=== PATIENT | male | born 1965 | race Caucasian/White ===

== ENCOUNTER 2018-08-17 07:44 | Day surgery (SDC) | payer OTHER ==
[2018-08-15 09:13] VITALS: BMI 33.2
[~2018-08-17 07:44] MED LIST: LACTATED RINGERS 1,000 ML IV SCH; LIDOCAINE 1% 20 ML VIAL (10MG/ML) FOR IV START INTRADERMA PRN
[2018-08-17 08:20] VITALS: RESP 16; TEMP 97.7
[2018-08-17] MEDS ORDERED: GLYCOPYRROLATE 0.2 MG/ML 2 ML VIAL ONE (09:10)
[2018-08-17] MEDS ORDERED: PROPOFOL 10 MG/ML 20 ML VIAL IV ONE (09:10)
[2018-08-17] MEDS ORDERED: LIDOCAINE 1% INJ 10MG/ML (20 ML MDV) ONE (09:10)
--- NOTE | 2018-08-17 09:38 | P.PCN ---
Date of Procedure: 08/17/18 Procedure(s) Performed: Procedure: Colonoscopy and polypectomy. Preoperative diagnosis: Screening for neoplasia. Postoperative diagnosis: Small distal sigmoid polyp snared but no large polyps or cancer. Preparation: HalfLytely prep. Sedation: Was provided by anesthesia. Brief clinical history: The patient is a 53-year-old male who is scheduled for this evaluation for screening for neoplasia. His last exam was in 2012. He has no abdominal complaints, bleeding or anemia. Procedure: With the patient on his left lateral decubitus position and after informed consent and adequate sedation, the perianal area was inspected and it did not show any fissures or fistulas. There were no masses felt on digital rectal examination. The Olympus CFH 190L colonoscope was then inserted in the rectum in the usual fashion and advanced to the cecum. The mucosa appeared healthy. There was no obvious diverticular disease noted. There was a small polyp in the distal sigmoid that was snared and retrieved by suction but there were no large polyps or cancer. I retroflexed the endoscope in the rectum before the endoscope was withdrawn The patient tolerated the procedure well. Plan: The patient was reassured. He will follow-up with you as planned and I recommended repeat exam in 5 years.
[2018-08-17 10:07] VITALS: BP 135/87; PULSE 42
== END 2018-08-17 10:45 | disposition home or self-care (01) ==
LOC: ORWHC2ENDO 07:44
DX: Z12.11 Encounter for screening for malignant neoplasm of colon (principal); D12.5 Benign neoplasm of sigmoid colon; K21.9 Gastro-esophageal reflux disease without esophagitis; Z79.899 Other long term (current) drug therapy; Z79.1 Long term (current) use of non-steroidal anti-inflammatories (NSAID)
CPT/HCPCS: 88305; 45385; J2001; J2704

== ENCOUNTER 2020-08-31 15:44 | Emergency (ER) | payer OTHER ==
--- NOTE | 2020-08-31 16:14 | ED ---
SOB HPI - General Chief Complaint: Shortness of Breath Stated Complaint: OLIVIA Time Seen by Provider: 08/31/20 15:53 Source: patient Mode of arrival: ambulatory Limitations: no limitations - History of Present Illness Initial Comments: Patient is a 55-year-old male with history of GERD, presenting to the emergency Department with complaints of shortness of breath 3 weeks. Patient has been having symptoms of cough, chest congestion and mild shortness of breath over the past 2 weeks, he went to urgent care 4 days ago, he was diagnosed with pneumonia and started on Augmentin as well as an inhaler and Mucinex. Patient states he has been taking his medications but feels like he continues to be short of breath. He denies any chest pains, no nausea or vomiting, no abdominal pain. He denies history of asthma or COPD, he is a former smoker. He denies ever having any fever, no chills, no body aches. He has no concerns for Covid and does not want to be tested. Patient states he has been taking his medications as prescribed. He describes his cough is dry, no production. He has no further complaints at this time. Upon arrival to the ER, he is slightly hypertensive at 183/99, rest of vitals are normal, 98% on room air. - Related Data Home Medications Medication Instructions Recorded Confirmed Cyanocobalamin (Vitamin B-12) 1,000 mcg PO DAILY 08/15/18 08/17/18 [Vitamin B-12] Joint Supplement 1 tab PO DAILY 08/15/18 08/17/18 Naproxen Sodium [Aleve] 220 mg PO DAILY PRN 08/15/18 08/17/18 Omeprazole [PriLOSEC] 20 mg PO AC-[id number] 08/15/18 08/17/18 Previous Rx's Medication Instructions Recorded methylPREDNISolone [Medrol Dose 4 mg PO DIRECTED #1 pack 08/31/20 Pack] Allergies Allergy/AdvReac Type Severity Reaction Status Date / Time No Known Allergies Allergy Verified 08/31/20 15:51 Review of Systems ROS Statement: Those systems with pertinent positive or pertinent negative responses have been documented in the HPI. ROS Other: All systems not noted in ROS Statement are negative. Past Medical History Past Medical History: GERD/Reflux, Liver Disease Additional Past Medical History / Comment(s): hepatitis-unkn type age 16 History of Any Multi-Drug Resistant Organisms: None Reported Past Surgical History: No Surgical Hx Reported Additional Past Surgical History / Comment(s): colonoscopy Past Anesthesia/Blood Transfusion Reactions: No Reported Reaction Past Psychological History: No Psychological Hx Reported Smoking Status: Former smoker Past Alcohol Use History: Occasional Past Drug Use History: None Reported - Past Family History Father Family Medical History: Cancer General Exam - General Exam Comments Initial Comments: GENERAL: Patient is well-developed and well-nourished. Patient is nontoxic and in no acute distress. HEAD: Atraumatic, normocephalic. EYES: Pupils equal round and reactive to light, extraocular movements intact, sclera anicteric, conjunctiva are normal. Eyelids were unremarkable. ENT: TMs normal, nares patent, oropharynx clear without exudates. Moist mucous membranes. NECK: Normal range of motion, supple without lymphadenopathy or JVD. LUNGS: Unlabored respirations. Breath sounds clear to auscultation bilaterally and equal. No wheezes rales or rhonchi. HEART: Regular rate and rhythm without murmurs, rubs or gallops. ABDOMEN: Soft, nontender, normoactive bowel sounds. No guarding, no rebound. No masses appreciated. : Deferred MUSCULOSKELETAL: Normal extremities with adequate strength and normal range of motion, no pitting or edema. No clubbing or cyanosis. NEUROLOGICAL: Patient is alert and oriented x 3. Motor and sensory are also intact. Cranial nerves II through XII grossly intact. Symmetrical smile. Normal speech, normal gait. PSYCH: Normal mood, normal affect. SKIN: Warm, Dry, normal turgor, no rashes or lesions noted. Limitations: no limitations Course Vital Signs 08/31/20 08/31/20 15:46 17:00 Temperature 98.1 F Pulse Rate 50 L 54 L Respiratory 18 18 Rate Blood Pressure 183/99 141/93 O2 Sat by Pulse 98 97 Oximetry Medical Decision Making - Medical Decision Making Patient is a 55-year-old male presenting with shortness of breath 3 weeks. Patient went to urgent care 4 days ago, diagnosed with pneumonia, is currently on Augmentin, Mucinex and using an inhaler. No fevers, his vital signs are stable today. EKG shows no acute process. Chest x-ray shows mild subsegmental atelectasis left lung base. Lab work is unremarkable, normal troponin, normal d-dimer. I discussed with patient that I mean and on steroids to his treatment regimen. He should continue and finish Augmentin, he can continue with his inhaler as needed. I will give him a dose of steroids and his IV before discharge. He will continue with oral steroids tomorrow. He can follow-up with his doctor. He is in agreement with this plan of care. Patient is stable for discharge. Patient is in agreement with this plan of care. Return parameters were discussed with the patient and they verbalized understanding. Case discussed with Dr. Kelley. - Lab Data Result diagrams: 08/31/20 17:21 08/31/20 17: Lab Results 08/31/20 08/31/20 08/31/20 Range/Units 17: 17: 17:21 WBC 9.9 (3.8-10.6) k/uL RBC 4.90 (4.30-5.90) m/uL Hgb 14.9 (13.0-17.5) gm/dL Hct 43.0 (39.0-53.0) % MCV 87.7 (80.0-100.0) fL MCH 30.5 (25.0-35.0) pg MCHC 34.8 (31.0-37.0) g/dL RDW 12.2 (11.5-15.5) % Plt Count 243 (150-450) k/uL MPV 7.3 Neutrophils % 58 % Lymphocytes % 28 % Monocytes % 7 % Eosinophils % 4 % Basophils % 1 % Neutrophils # 5.8 (1.3-7.7) k/uL Lymphocytes # 2.8 (1.0-4.8) k/uL Monocytes # 0.7 (0-1.0) k/uL Eosinophils # 0.4 (0-0.7) k/uL Basophils # 0.1 (0-0.2) k/uL PT 10.3 (9.0-12.0) sec INR 1.0 (<1.2) APTT 22.0 (22.0-30.0) sec D-Dimer 0.31 (<0.60) mg/L FEU Sodium 139 (137-145) mmol/L Potassium 4.4 (3.5-5.1) mmol/L Chloride 100 (98-107) mmol/L Carbon Dioxide 31 H (22-30) mmol/L Anion Gap 8 mmol/L BUN 19 (9-20) mg/dL Creatinine 0.88 (0.66-1.25) mg/dL Est GFR (CKD-EPI)AfAm >90 (>60 ml/min/1.73 sqM) Est GFR (CKD-EPI)NonAf >90 (>60 ml/min/1.73 sqM) Glucose 89 (74-99) mg/dL Plasma Lactic Acid Max (0.7-2.0) mmol/L Calcium 10.2 (8.4-10.2) mg/dL Total Bilirubin 1.0 (0.2-1.3) mg/dL AST 44 (17-59) U/L ALT 48 (4-49) U/L Alkaline Phosphatase 66 (38-126) U/L Troponin I (0.000-0.034) ng/mL Total Protein 7.7 (6.3-8.2) g/dL Albumin 4.6 (3.5-5.0) g/dL 08/31/20 08/31/20 Range/Units 17:21 17:21 WBC (3.8-10.6) k/uL RBC (4.30-5.90) m/uL Hgb (13.0-17.5) gm/dL Hct (39.0-53.0) % MCV (80.0-100.0) fL MCH (25.0-35.0) pg MCHC (31.0-37.0) g/dL RDW (11.5-15.5) % Plt Count (150-450) k/uL MPV Neutrophils % % Lymphocytes % % Monocytes % % Eosinophils % % Basophils % % Neutrophils # (1.3-7.7) k/uL Lymphocytes # (1.0-4.8) k/uL Monocytes # (0-1.0) k/uL Eosinophils # (0-0.7) k/uL Basophils # (0-0.2) k/uL PT (9.0-12.0) sec INR (<1.2) APTT (22.0-30.0) sec D-Dimer (<0.60) mg/L FEU Sodium (137-145) mmol/L Potassium (3.5-5.1) mmol/L Chloride (98-107) mmol/L Carbon Dioxide (22-30) mmol/L Anion Gap mmol/L BUN (9-20) mg/dL Creatinine (0.66-1.25) mg/dL Est GFR (CKD-EPI)AfAm (>60 ml/min/1.73 sqM) Est GFR (CKD-EPI)NonAf (>60 ml/min/1.73 sqM) Glucose (74-99) mg/dL Plasma Lactic Acid Max 1.1 (0.7-2.0) mmol/L Calcium (8.4-10.2) mg/dL Total Bilirubin (0.2-1.3) mg/dL AST (17-59) U/L ALT (4-49) U/L Alkaline Phosphatase (38-126) U/L Troponin I <0.012 (0.000-0.034) ng/mL Total Protein (6.3-8.2) g/dL Albumin (3.5-5.0) g/dL - EKG Data EKG Comments: Sinus bradycardia, otherwise a normal ECG. Ventricular rate 50, OK interval 174, QTC 418. Disposition Clinical Impression: Pneumonia Disposition: HOME SELF-CARE Condition: Stable Instructions (If sedation given, give patient instructions): Bacterial Pneumonia (ED) Additional Instructions: Please return to the Emergency Department if symptoms worsen or any other concerns. Continue with already prescribed Augmentin and sure inhaler for shortness of breath. Please add on oral steroids as discussed, start these tomorrow. Follow-up with your regular doctor. Prescriptions: methylPREDNISolone [Medrol Dose Pack] 4 mg PO DIRECTED #1 pack Is patient prescribed a controlled substance at d/c from ED?: No Referrals: [facility],Clinic [REFERRING] - 1-2 days
--- NOTE | 2020-08-31 16:36 | XR ---
EXAMINATION TYPE: XR chest 2V DATE OF EXAM: 08/31/2020 COMPARISON: NONE HISTORY: Short of breath TECHNIQUE: 2 views FINDINGS: There is some linear density left lung base. Heart and mediastinum are normal. There are no hilar masses. There is no pleural effusion. Bony thorax is intact. There are chest leads. IMPRESSION: Mild subsegmental atelectasis left lung base. Normal heart.
[2020-08-31 17:29] LABS: Basophils # (A) 0.1 k/uL (0-0.2); Basophils % (A) 1 %; Eosinophils # (A) 0.4 k/uL (0-0.7); Eosinophils % (A) 4 %; HGB 14.9 gm/dL (13.0-17.5); Lymphocytes # (A) 2.8 k/uL (1.0-4.8); Lymphocytes % (A) 28 %; MCH 30.5 pg (25.0-35.0); MCHC 34.8 g/dL (31.0-37.0); MCV 87.7 fL (80.0-100.0); Mean Platelet Volume 7.3; Monocytes # (A) 0.7 k/uL (0-1.0); Monocytes % (A) 7 %; Neutrophils # (A) 5.8 k/uL (1.3-7.7); Neutrophils % (A) 58 %; Platelet Count 243 k/uL (150-450); RDW 12.2 % (11.5-15.5); WBC 9.9 k/uL (3.8-10.6)
[2020-08-31 17:37] LABS: ALT 48 U/L (4-49); AST 44 U/L (17-59); African American GFR (CKD) >90 (>60 ml/min/1.73 sqM); Albumin 4.6 g/dL (3.5-5.0); Alkaline Phosphatase 66 U/L (38-126); Anion Gap 8 mmol/L; Blood Urea Nitrogen 19 mg/dL (9-20); Calcium 10.2 mg/dL (8.4-10.2); Carbon Dioxide 31 mmol/L (22-30); Chloride 100 mmol/L (98-107); Glucose 89 mg/dL (74-99); Non-African American GFR(CKD) >90 (>60 ml/min/1.73 sqM); Potassium 4.4 mmol/L (3.5-5.1); Sodium 139 mmol/L (137-145); Total Protein 7.7 g/dL (6.3-8.2)
[2020-08-31 17:50] LABS: D-Dimer 0.31 mg/L FEU (<0.60); Prothrombin Time 10.3 sec (9.0-12.0)
[2020-08-31] MEDS ORDERED: methylPREDNISolone SOD SUCCI 125 MG/2 ML VIAL IV STA (18:00)
[2020-08-31 18:10] VITALS: BP 147/81; PULSE 55; RESP 20
[2020-08-31 18:19] VITALS: TEMP 98.2
== END 2020-08-31 18:10 | disposition home or self-care (01) ==
LOC: EC 15:44
DX: J18.9 Pneumonia, unspecified organism (principal); K21.9 Gastro-esophageal reflux disease without esophagitis; Z79.899 Other long term (current) drug therapy; Z87.891 Personal history of nicotine dependence
CPT/HCPCS: 36415; 93005; 85379; 83880; 80053; 83605; 84484; 85025; 85610; 85730; 71046; 99285; 96374; J2930

== ENCOUNTER → 2020-11-12 | Outpatient (CLI) | payer OTHER ==
--- NOTE | 2020-11-12 22:04 | CONS ---
CONSULTATION DATE OF SERVICE: 11/12/2020. 55-year-old gentleman who has been [facility]evaluated in the [facility] for obstructive sleep apnea-hypopnea syndrome. HISTORY OF PRESENT ILLNESS/SLEEP WAKE EVALUATION: Patient has been diagnosed with obstructive sleep apnea in 2014, apnea-hypopnea index at that time was 14.7, and he was treated with CPAP with a pressure 13 cm of water. The patient continues to use his CPAP equipment every night. He does not snore with a CPAP but wakes up from sleep 2 times without nocturia. SLEEP SCHEDULE: His sleep schedule on working days from 7:30 p.m. to 2 a.m. and on weekends from 9:30 p.m. to 6:30 a.m. FALLING ASLEEP: No problems with falling asleep. No TV in bedroom. DURING SLEEP: Patient usually sleeps on the side position. No history of hypnagogic hallucinations, sleep paralysis or cataplexy. [place] Sleepiness Scale today is normal at 3. I checked his CPAP unit. Usage is 25/30 nights for more than 4 hours. Average usage is 6.4 hours per night. Range of the pressure 7-13 Auto PAP. Machine does not have information about apnea-hypopnea index. The patient using DreamWear under the nose mask. PAST MEDICAL HISTORY: Basically negative. PAST SURGICAL HISTORY: Negative. MEDICATIONS: Presently none. SOCIAL HISTORY: Smokes cigarettes in the past. Quit smoking 22 years ago. Alcohol consumption occasional. FAMILY HISTORY: Snoring. REVIEW OF SYSTEMS: Some awakenings from sleep while on treatment with CPAP. No fevers. No double vision. No recent chest pain. No shortness of breath. No abdominal pain. No bleeding episodes. No blood in the urine. No seizure episodes. PHYSICAL EXAMINATION: GENERAL: Patient in no distress. BP 157/87, HR 47, RR 14, height 5 feet 10 inches, weight 226, BMI 32.4. Neck 17 and two quarter inches in circumference. Temperature 98.5, oxygen saturation at room air 98%. HEENT: PERRLA, EOMI. Oropharynx low position of soft palate. NECK: Supple, no JVD. Thyroid is not palpable. LUNGS: Clear to percussion and to auscultation. Good air exchange. No wheezing or rhonchi. HEART: S1, S2 regular. No murmurs, gallops, or rubs. ABDOMEN: Slightly obese. Soft and nontender. Bowel sounds are present. No organomegaly appreciated. EXTREMITIES: No clubbing or cyanosis. 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 Cranial nerves 2 to 7 intact. There is no fasciculation or atrophy. noted. No focal deficits observed. IMPRESSION: 1. Obstructive sleep apnea-hypopnea syndrome for about 8 years. The patient continues to use his machine, but has awakenings from sleep. The patient does not have information about apnea-hypopnea index. 2. Obesity, BMI 32.4. 3. 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 4. Hypertension in the office today, BP 157/87. PLAN: 1. The patient CPAP unit is old pleasant. Does not have information about apnea- hypopnea index. 2. Prescription for new auto PAP, range of the pressure of 7-13. 3. The patient should continue to use CPAP equipment every night for the whole night. 4. Prescription for Dream Wear under the nose mask, heated humidifier. 5. Watching and losing weight. 6. Sleep hygiene with regular time in bed for 7-1/2 to 8 hours. 7. No driving if feeling sleepiness. 8. I will see patient for follow-up visit after he will get a new machine to check his compliance with treatment and check apnea-hypopnea index reading from the machine if necessary to make any adjustments. Thank you very much for referring this patient for consultation. Sincerely, Memo Márquez MD, PhD, FAASM Diplomat of [place] [employer] [place] [employer] G[employer] Writer of [facility] [place] MMODL / RAMONN: [id number] /
== END ==
CPT/HCPCS: 99211

== ENCOUNTER → 2021-08-17 | Outpatient (CLI) | payer BC ==
--- NOTE | 2021-08-18 10:34 | US ---
EXAMINATION TYPE: US abdomen complete DATE OF EXAM: 08/17/2021 COMPARISON: NONE CLINICAL HISTORY: 56-year-old male R10.30 LOWER ABD PAIN,R74.01 ELEVATION LIVER TRANSAMINASE. Elevate d LFT's. Patient states generalized ABD pain TECHNIQUE: Multiple sonographic images of the abdomen are obtained. FINDINGS: EXAM MEASUREMENTS: Liver Length: 16.6 cm Gallbladder Wall: 0.3 cm CBD: 0.4 cm Spleen: 11.7 cm Right Kidney: 10.5 x 5.2 x 5.5 cm Left Kidney: 11.7 x 6.0 x 5.4 cm Pancreas: Most of the pancreas is visualized and shows no gross abnormal mobility. Liver: Echogenic with coarsened echotexture. No focal lesion seen. Gallbladder: wnl Evidence for sonographic Sheridan's sign: No CBD: wnl Spleen: wnl Right Kidney: wnl Left Kidney: wnl Upper IVC: wnl Abd Aorta: Mid and distal portions wnl, proximal portion obscured by bowel gas IMPRESSION: Echogenic liver with coarsened echotexture. Correlate for moderate hepatic steatosis or other nonspec ific hepatocellular disease. No gallstones or biliary ductal dilatation.
== END ==
LOC: RADUSWWP 16:19
PROVIDERS: ATTEND Family Medicine
DX: R93.2 Abnormal findings on diagnostic imaging of liver and biliary tract (principal)
CPT/HCPCS: 76700